=== PATIENT | female | born 1995 | race Caucasian/White ===

== ENCOUNTER 2017-11-02 07:31 | Emergency (ER) | payer MEDICAID ==
[~2017-11-02] VITALS: Ht 165.1 cm; Wt 52.0 kg
[~2017-11-02 07:31] MED LIST: CEPH-357 PO; CLIN300C71 PO; HYDR-569 PO; PRED20TA PO; RANI-366 PO
[2017-11-02 08:03] LABS: URINE HCG NEGATIVE (NEG)
[2017-11-02 08:06] LABS: CLARITY,URINE CLEAR (Clear); COLOR,URINE YELLOW (Yellow); GLUCOSE, URINE NEGATIVE (Neg); KETONES,URINE TRACE mg/dl (Neg); LEUKOCYTE ESTERASE ,URINE NEGATIVE (Neg); NITRITES, URINE POSITIVE (Neg); OCCULT BLOOD,URINE TRACE-INTACT (Neg); PROTEIN,URINE TRACE mg/dl (Neg); UROBILINOGEN,URINE 0.2 E.U/dL (0.2-1.0)
[2017-11-02 08:13] LABS: UA COLLECTION TYPE CLN CATCH MIDSTREAM
[2017-11-02 08:17] LABS: BACTERIA,URINE FEW /HPF (Neg); MUCUS STRANDS FEW /LPF (Neg); RBC,URINE 0-2 /HPF (0-2); SQUAMOUS EPITHELIAL CELL,UR FEW /LPF (FEW); WBC,URINE 0-4 /HPF (0-4)
[2017-11-02] MEDS ORDERED: ondansetron/PF 4mg/2ml inj IV ONE (08:25)
[2017-11-02] MEDS ORDERED: normal saline 1000ML IV soln IVB ONE (08:25)
[2017-11-02] MEDS ORDERED: ONDA4TAB9 PO (09:22)
[2017-11-02] MEDS ORDERED: SULF1TAB49 PO (09:22)
[2017-11-02 10:18] VITALS: BP 148/94
== END 2017-11-02 10:20 | disposition home or self-care (01) ==
LOC: ER 07:32
DX: F19.239 Other psychoactive substance dependence with withdrawal, unspecified (principal); N39.0 Urinary tract infection, site not specified; F12.10 Cannabis abuse, uncomplicated; Z90.89 Acquired absence of other organs; Z88.1 Allergy status to other antibiotic agents; Z79.899 Other long term (current) drug therapy
CPT/HCPCS: 81001; 81025; 87088; 96361; 96374; 99284; J2405; J7030

== ENCOUNTER 2017-11-09 19:05 | Emergency (ER) | payer MEDICAID ==
[~2017-11-09] VITALS: Ht 165.1 cm; Wt 53.3 kg
[~2017-11-09 19:05] MED LIST changes: +ONDA4TAB9 PO; +SULF1TAB49 PO
[2017-11-09 19:13] VITALS: BP 114/58
[2017-11-09] MEDS ORDERED: diphenhydrAMINE 25mg capsule PO ONE (20:30)
== END 2017-11-09 21:01 | disposition home or self-care (01) ==
LOC: ER 19:06
DX: T37.0X5A Adverse effect of sulfonamides, initial encounter (principal); F12.10 Cannabis abuse, uncomplicated; Z88.1 Allergy status to other antibiotic agents; Z88.2 Allergy status to sulfonamides; Z88.8 Allergy status to other drugs, medicaments and biological substances; Z79.899 Other long term (current) drug therapy; Y92.89 Other specified places as the place of occurrence of the external cause
CPT/HCPCS: 99282; Q0163

== ENCOUNTER 2017-12-02 18:43 | Emergency (ER) | payer MEDICAID ==
[~2017-12-02] VITALS: Ht 165.1 cm; Wt 57.2 kg
[~2017-12-02 18:43] MED LIST changes: -SULF1TAB49 PO
[2017-12-02 18:49] VITALS: BP 128/77
[2017-12-02 19:09] LABS: URINE HCG NEGATIVE (NEG)
[2017-12-02 19:11] LABS: CLARITY,URINE CLEAR (Clear); COLOR,URINE YELLOW (Yellow); GLUCOSE, URINE NEGATIVE (Neg); KETONES,URINE NEGATIVE (Neg); LEUKOCYTE ESTERASE ,URINE NEGATIVE (Neg); NITRITES, URINE NEGATIVE (Neg); OCCULT BLOOD,URINE NEGATIVE (Neg); PROTEIN,URINE NEGATIVE (Neg); UROBILINOGEN,URINE 0.2 E.U/dL (0.2-1.0)
[2017-12-02 19:12] LABS: UA COLLECTION TYPE CLN CATCH MIDSTREAM
[2017-12-02] MEDS ORDERED: ONDA4TAB9 PO (19:42)
== END 2017-12-02 19:50 | disposition home or self-care (01) ==
LOC: ER 18:43
DX: R11.2 Nausea with vomiting, unspecified (principal); R10.13 Epigastric pain; F12.10 Cannabis abuse, uncomplicated; Z88.2 Allergy status to sulfonamides; Z88.8 Allergy status to other drugs, medicaments and biological substances; Z79.899 Other long term (current) drug therapy
CPT/HCPCS: 81003; 81025; 99284

== ENCOUNTER 2018-05-20 23:11 | Emergency (ER) | payer MEDICAID ==
[~2018-05-20] VITALS: Ht 165.1 cm; Wt 52.2 kg
[~2018-05-20 23:11] MED LIST changes: +HYDR-4383 PO; -HYDR-569 PO; -ONDA4TAB9 PO
[2018-05-20 23:56] LABS: BASOPHILS # (AUTO) 0.2 X10'3 (0-0.2); BASOPHILS % (AUTO) 1.8 % (0-1); EOSINOPHILS % (AUTO) 0.3 % (0-6); HEMATOCRIT 41.5 % (35.0-45.0); HEMOGLOBIN 14.2 g/dl (12.0-16.0); LYMPHOCYTES # (AUTO) 0.8 X10'3 (1.1-4.8); LYMPHOCYTES % (AUTO) 5.8 % (21-51); MEAN CORPUSCULAR HEMOGLOBIN 30.6 PG (27.0-31.0); MEAN CORPUSCULAR HGB CONC 34.2 % (33.0-36.5); MEAN CORPUSCULAR VOLUME 89.5 FL (78-98); MEAN PLATELET VOLUME 9.7 FL (7.4-10.4); MONOCYTES # (AUTO) 0.6 X10'3 (0-0.9); MONOCYTES % (AUTO) 4.7 % (2-12); NEUTROPHILS # (AUTO) 11.4 X10'3 (1.8-7.7); NEUTROPHILS % (AUTO) 87.4 % (42-75); PLATELET COUNT 223 X10'3 (140-440); RED BLOOD COUNT 4.64 X10'6 (4.20-5.60); RED CELL DISTRIBUTION WIDTH 12.2 % (11.5-14.5)
[2018-05-20 23:59] LABS: CLARITY,URINE SLIGHTLY CLOUDY (Clear); GLUCOSE, URINE NEGATIVE (Neg); KETONES,URINE 15 mg/dl (Neg); LEUKOCYTE ESTERASE ,URINE NEGATIVE (Neg); NITRITES, URINE NEGATIVE (Neg); OCCULT BLOOD,URINE TRACE-INTACT (Neg); PH,URINE 5.5 (4.8-8.0); PROTEIN,URINE 30 mg/dl (Neg); URINE HCG NEGATIVE (NEG)
[2018-05-21 00:02] LABS: PROTHROMBIN TIME 10.7 SECONDS (9.0-12.0)
[2018-05-21 00:06] LABS: ALANINE AMINOTRANSFERASE 31 U/L (12-78); ALBUMIN 4.5 G/DL (3.4-5.0); ALBUMIN/GLOBULIN RATIO 1.4 (1.1-1.5); ALKALINE PHOSPHATASE 103 IU/L (46-116); ANION GAP 14 (8-16); ASPARTATE AMINO TRANSFERASE 29 U/L (10-37); BILIRUBIN,TOTAL 0.5 MG/DL (0.1-1.0); BLOOD UREA NITROGEN 12 MG/DL (7-18); BUN/CREATININE RATIO 11.1 (6.6-38.0); CALCIUM 9.1 MG/DL (8.5-10.1); CHLORIDE 102 MMOL/L (99-107); CREATININE 1.08 MG/DL (0.40-0.90); GLUCOSE 132 MG/DL (70-104); LIPASE 104 U/L (73-393); POTASSIUM 3.1 MMOL/L (3.5-5.1); SODIUM 141 MMOL/L (135-145); TOTAL CARBON DIOXIDE 24.6 MMOL/L (24-32); TOTAL PROTEIN 7.8 G/DL (6.4-8.2); eGFR 63 ML/MIN
[2018-05-21 00:14] LABS: COLOR,URINE DARK YELLOW (Yellow); UA COLLECTION TYPE CLN CATCH MIDSTREAM
[2018-05-21 00:16] LABS: BACTERIA,URINE FEW /HPF (Neg); SQUAMOUS EPITHELIAL CELL,UR FEW /LPF (FEW); WBC,URINE 0-4 /HPF (0-4)
[2018-05-21 00:17] LABS: MUCUS STRANDS MANY /LPF (Neg)
[2018-05-21 00:42] LABS: TOTAL CELLS COUNTED 100
[2018-05-21 00:43] LABS: PLATELET ESTIMATE NORMAL; TOXIC GRANULATION 1+
[2018-05-21] MEDS ORDERED: normal saline 1000ML IV soln IVB ONE ×2 (00:45)
[2018-05-21] MEDS ORDERED: morphine 4 MG/ML inj SYRINge IV ONE (00:45)
[2018-05-21] MEDS ORDERED: ondansetron/PF 4mg/2ml inj IV ONE (00:45)
[2018-05-21] MEDS ORDERED: pantoprazole 40 MG vial IV ONE (00:45)
[2018-05-21] MEDS ORDERED: ONDA8TAB9 PO (00:48)
[2018-05-21] MEDS ORDERED: PANT-47 PO (00:48)
[2018-05-21 02:07] VITALS: BP 119/62
== END 2018-05-21 02:10 | disposition home or self-care (01) ==
LOC: ER 23:11
DX: K29.70 Gastritis, unspecified, without bleeding (principal); R11.2 Nausea with vomiting, unspecified; R10.13 Epigastric pain; F12.90 Cannabis use, unspecified, uncomplicated; Z90.89 Acquired absence of other organs; Z88.1 Allergy status to other antibiotic agents; Z88.8 Allergy status to other drugs, medicaments and biological substances; Z79.899 Other long term (current) drug therapy
CPT/HCPCS: 36415; 80053; 81001; 81025; 83690; 85025; 85610; 96361; 96374; 96375; 99284; C9113; J2270; J2405; 81003

== ENCOUNTER 2019-02-23 20:21 | Emergency (ER) | payer MEDICAID ==
[~2019-02-23] VITALS: Ht 165.1 cm; Wt 22.5 kg
[~2019-02-23 20:21] MED LIST changes: +ONDA8TAB9 PO; +PANT-47 PO
[2019-02-23 20:24] VITALS: BP 101/24
[2019-02-23] MEDS ORDERED: NEOM10DR45 RIGHT EAR (20:51)
== END 2019-02-23 20:57 | disposition home or self-care (01) ==
LOC: ER 20:21
DX: H60.91 Unspecified otitis externa, right ear (principal); K21.9 Gastro-esophageal reflux disease without esophagitis; F41.9 Anxiety disorder, unspecified; F32.9 Major depressive disorder, single episode, unspecified; F17.200 Nicotine dependence, unspecified, uncomplicated; F12.90 Cannabis use, unspecified, uncomplicated; Z90.89 Acquired absence of other organs; Z98.890 Other specified postprocedural states; Z88.2 Allergy status to sulfonamides; Z88.1 Allergy status to other antibiotic agents; Z88.8 Allergy status to other drugs, medicaments and biological substances; Z79.899 Other long term (current) drug therapy
CPT/HCPCS: 99283

== ENCOUNTER 2020-02-20 20:42 | Emergency (ER) | payer MEDICAID ==
[~2020-02-20] VITALS: Ht 165.1 cm; Wt 51.0 kg
[2020-02-20 21:03] VITALS: BP 114/66
== END 2020-02-20 22:07 | disposition home or self-care (01) ==
LOC: ER 20:42
DX: S63.502A Unspecified sprain of left wrist, initial encounter (principal); K21.9 Gastro-esophageal reflux disease without esophagitis; F32.9 Major depressive disorder, single episode, unspecified; F41.9 Anxiety disorder, unspecified; F12.90 Cannabis use, unspecified, uncomplicated; Z90.89 Acquired absence of other organs; Z98.890 Other specified postprocedural states; Z88.2 Allergy status to sulfonamides; Z88.8 Allergy status to other drugs, medicaments and biological substances; Z79.899 Other long term (current) drug therapy
CPT/HCPCS: 29125; 73110; 99284

== ENCOUNTER 2020-08-14 18:29 | Emergency (ER) | payer MEDICAID ==
[~2020-08-14] VITALS: Ht 165.1 cm; Wt 48.4 kg
[2020-08-14 18:39] VITALS: BP 149/86
[2020-08-14] MEDS ORDERED: proparacaine 0.5% ophthalmic drops 15ml EACHEYE ONE (19:30)
[2020-08-14] MEDS ORDERED: moxifloxacin 0.5% ophthalmic drops 3ml LEFTEYE SCH (21:10)
== END 2020-08-14 21:24 | disposition home or self-care (01) ==
LOC: ER 18:30
DX: S05.02XA Injury of conjunctiva and corneal abrasion without foreign body, left eye, initial encounter (principal); K21.9 Gastro-esophageal reflux disease without esophagitis; Z90.89 Acquired absence of other organs; F12.90 Cannabis use, unspecified, uncomplicated; Z98.82 Breast implant status; Z72.89 Other problems related to lifestyle; Z88.1 Allergy status to other antibiotic agents; Z88.2 Allergy status to sulfonamides; Z88.8 Allergy status to other drugs, medicaments and biological substances; Z79.2 Long term (current) use of antibiotics; Z79.899 Other long term (current) drug therapy; X58.XXXA Exposure to other specified factors, initial encounter; Y93.89 Activity, other specified; Y92.89 Other specified places as the place of occurrence of the external cause; Y99.8 Other external cause status
CPT/HCPCS: 99283

== ENCOUNTER 2024-06-11 00:53 | Emergency (ER) | payer MEDICAID ==
[~2024-06-11] VITALS: Ht 165.1 cm; Wt 49.1 kg
[2024-06-11] MEDS: diphenhydrAMINE 50 mg/ml inj IV ONE (01:39)
[2024-06-11] MEDS: ketorolac trometh 15mg/ml vial 15 MG/ML ML IV ONE (01:40)
[2024-06-11] MEDS: acetaminophen 1,000mg/100ml IV 100 ML IV ONE (01:40)
[2024-06-11] MEDS: normal saline 1000ml 1,000 ML IV ONE (01:41)
[2024-06-11 02:36] VITALS: BP 126/80; PULSE 82; RESP 16; TEMP 98.6; O2SAT 99
== END 2024-06-11 02:39 | disposition left against medical advice (07) ==
LOC: ER 00:53
DX: G43.909 Migraine, unspecified, not intractable, without status migrainosus (principal); K21.9 Gastro-esophageal reflux disease without esophagitis; F12.90 Cannabis use, unspecified, uncomplicated; Z88.2 Allergy status to sulfonamides; Z88.1 Allergy status to other antibiotic agents; Z79.2 Long term (current) use of antibiotics; Z79.899 Other long term (current) drug therapy; Z90.89 Acquired absence of other organs; Z87.440 Personal history of urinary (tract) infections
CPT/HCPCS: 96374; 96375; 99284; J0131; J1200; J1885; J7030